=== PATIENT | female | born 1950 | race Caucasian/White ===

== ENCOUNTER → 2017-02-18 | Outpatient (CLI) | payer MEDICARE, OTHER ==
[~2017-02-18] MED LIST: ACID1TAB14 PO; ASPI-781 PO; BUME0.5T PO; CARV6.2579 PO; CHOL200043 PO; CRES10 PO; ESOM40CA PO; FENO145T19 PO; FLUT9.9S NASAL; FOLI-49 PO; GABA300C PO; LISI10TA2 PO; MAGN300C2 PO; MULT-853 PO; OXYC-481 PO; SUCR1TAB27 PO; TRIA1TAB PO; ZOLP5TAB PO
--- NOTE | 2017-02-19 09:49 | RADRPT ---
PROCEDURE: XR Knee. CLINICAL INDICATION: Right knee pain TECHNIQUE: Weightbearing AP, lateral and sunrise views of the right knee were obtained. COMPARISON: 03/19/2016 FINDINGS: No fracture or osseous lesion is identified. There is no evidence for dislocation. Arthroplasty c hanges remain satisfactory in radiographic appearance without periprosthetic lucency. No periosteal reaction is evident. A suprapatellar joint effusion is similar to the previous examination. No varu s or valgus angulation of the leg is evident. RPTAT:HJJR IMPRESSION: Stable joint effusion and satisfactory arthroplasty changes of the right knee, the appearance unchan ged compared to 03/19/2016. Physician Roberto Carlos Date Time Electronically viewed and signed by Physician Roberto Carlos on 02/18/2017 16:10 /
--- NOTE | 2017-02-19 10:21 | HKNOTE ---
DATE OF SERVICE: 02/18/2017 MAIN COMPLAINT: Pain in the right knee. HISTORY OF MAIN COMPLAINT: Patient is a 66-year-old female, who underwent a right knee replacement which was performed by me in 2015. She had been extremely pleased with the result of the surgery. She developed spontaneous onset of pain over the medial aspect of the knee. There is no history of injury to the knee. The pain started in October. PHYSICAL EXAMINATION: VITAL SIGNS: Height 5 foot 2, weight unknown. Blood pressure 125/75, temperature 98.3. Directed physical examination of the right knee: Scar of previous knee replacement. The knee has a full range of motion without pain. No sign of infection. No pain on flexion. A point of marked tenderness over the right over the right pes bursa. DIAGNOSIS: Pes bursitis of the right knee. MANAGEMENT: Under sterile conditions, she is given an injection of 2 mL of Kenalog and 6 mL of 2 percent lidocaine into the pes bursa and she will be seen again as necessary. Dictated By: Romel Petersen MD /[email or web address]/gen /Document#: [id number]
== END | disposition home or self-care (01) ==
LOC: HKI 14:56
DX: Z47.1 Aftercare following joint replacement surgery (principal); Z96.651 Presence of right artificial knee joint; M70.51 Other bursitis of knee, right knee
CPT/HCPCS: 20610; 73562; G0463

== ENCOUNTER → 2017-10-19 | Outpatient (CLI) | END | disposition home or self-care (01) ==

== ENCOUNTER → 2017-11-23 | Outpatient (CLI) | END | disposition home or self-care (01) ==

== ENCOUNTER → 2018-02-01 | Outpatient (CLI) | END | disposition home or self-care (01) ==